=== PATIENT | male | born 1960 | race Caucasian/White ===

== ENCOUNTER 2019-03-31 01:17 | Observation (INO) ==
[2019-03-31] MEDS ORDERED: Aspirin 81 MG TAB.CHEW PO STA (01:47)
[2019-03-31 01:52] LABS: Basophils # 0.1 K/mcL (0.0-0.2); Basophils % 0.9 %; Eosinophils # 0.3 K/mcL (0.0-0.6); Eosinophils % 5.2 %; Hematocrit 43.3 % (37.5-50.1); Hemoglobin 15.2 g/dL (12.9-16.9); Immature Granulocytes % 0.2 % (0-4); Lymphocytes # 1.9 K/mcL (0.6-4.6); Lymphocytes % 34.3 %; Mean Corpuscular HGB Conc 35.1 g/dL (31.6-35.5); Mean Corpuscular Hemoglobin 30.7 pg (28.0-33.3); Mean Corpuscular Volume 87.5 fL (83.0-100.0); Mean Platelet Volume 10.1 fL (9.4-12.4); Monocytes # 0.7 K/mcL (0.0-1.3); Neutrophils # 2.6 K/mcL (1.6-8.9); Platelet Count 178 K/mcL (140-400); Red Blood Count 4.95 M/mcL (4.19-5.50); Red Cell Distribution Width 11.9 % (11.5-14.5); Segmented Neutrophils % 47.4 %; White Blood Count 5.4 K/mcL (4.3-11.1)
[2019-03-31 02:13] LABS: BUN/Creatinine Ratio 19 (6-26); Blood Urea Nitrogen 17 mg/dL (6-20); Calcium 9.5 mg/dL (8.6-10.3); Carbon Dioxide 22 mEq/L (23-29); Chloride 105 mEq/L (98-107); Glucose 88 mg/dL (70-105); Osmolality,Calculated 287 (280-300); Potassium 3.8 mEq/L (3.5-5.1); Sodium 138 mEq/L (136-145); eGFR For African Americans > 60 (> 60); eGFR For Non-African Americans > 60 (> 60)
[2019-03-31 02:14] LABS: Troponin I < 0.03 ng/mL (< 0.04)
--- NOTE | 2019-03-31 02:49 | Emergency Department Note ---
Disposition Clinical Impression: Chest pain Qualifiers: Chest pain type: unspecified Qualified Code(s): R07.9 - Chest pain, unspecified Disposition: Admitted As Inpatient Condition: Good Time of Disposition: 03:18 Chest Pain HPI - General Chief Complaint: ED Chest Pain Stated Complaint: CP Time Seen by Provider: 03/31/19 01:29 Source: patient Limitations: no limitations - History of Present Illness HPI Narrative: Patient 58-year-old gentleman presents to the emergency department with chief complaint of chest pain. The patient states around 6:00 tonight he started having midsternal chest pain. Patient states he also noticed that he started having a sensation like he would skip a beat. 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 Patient states that he did not get diaphoretic or have radiation of the symptoms. Patient states that he did have similar symptoms in the past whenever he had gastritis from taking alieve. Severity scale (1-10): 4 - Related Data Home Medications Medication Instructions Recorded Confirmed No Known Home Drugs 03/31/19 03/31/19 Allergies Allergy/AdvReac Type Severity Reaction Status Date / Time naproxen [From Aleve] Allergy Anaphylaxis Verified 03/31/19 01:46 All systems ED: reviewed and negative except as stated. Chest Pain PMH - Past Medical History Medical history: Reports: no medical history Surgical history: Reports: herniorrhaphy - Social History Smoking Status: Never smoker Alcohol use: Reports: occasionally Physical Exam General: Conversant and pleasant interactive and nontoxic. Head: Normocephalic/atraumatic Eyes:PERRLA, EOMI, no conjunctivitis Nares: Without d/c. Ears: No erythema or d/c noted. Oralpharnyx: P&MMM noted, Neck: Supple, no JVD or VP COMPLIANCE noted. Cardovascular: regular rate and rhythm without murmur, brisk capillary refill, no peripheral edema. Lungs: Clear to ascultation bilaterally, non-labored Abd: Soft nontender, Non Distended, no guarding, no rebound. : Defered Extremities: moves all extremities equally Neuro: AOx3, no obvious gross neuro deficit Psych: Normal Affect Derm: No rash noted - General Limitations: no limitations General appearance: alert, in no apparent distress Course Vital Signs Temperature 97.6 F 03/31/19 01:23 Pulse Rate 62 03/31/19 01:23 Respiratory Rate 16 03/31/19 01:23 Blood Pressure 165/88 03/31/19 01:23 O2 Sat by Pulse Oximetry 99 03/31/19 01:23 Temperature 97.6 F 03/31/19 06:33 Pulse Rate 51 03/31/19 06:33 Respiratory Rate 16 03/31/19 06:33 Blood Pressure 123/74 03/31/19 06:33 O2 Sat by Pulse Oximetry 98 03/31/19 06:33 Oxygen Delivery Oxygen Delivery Room Air Chest Pain - Lab Data Result diagrams: 03/31/19 01:41 03/31/19 01:41 Lab Results 03/31/19 03/31/19 Range/Units 01:41 01:41 WBC 5.4 (4.3-11.1) K/mcL RBC 4.95 (4.19-5.50) M/mcL Hgb 15.2 (12.9-16.9) g/dL Hct 43.3 (37.5-50.1) % MCV 87.5 (83.0-100.0) fL MCH 30.7 (28.0-33.3) pg MCHC 35.1 (31.6-35.5) g/dL RDW 11.9 (11.5-14.5) % Plt Count 178 (140-400) K/mcL MPV 10.1 (9.4-12.4) fL Immature Gran % 0.2 (0-4) % Seg Neutrophils % 47.4 % Lymphocytes % 34.3 % Monocytes % 12.0 % Eosinophils % 5.2 % Basophils % 0.9 % Neutrophils # 2.6 (1.6-8.9) K/mcL Lymphocytes # 1.9 (0.6-4.6) K/mcL Monocytes # 0.7 (0.0-1.3) K/mcL Eosinophils # 0.3 (0.0-0.6) K/mcL Basophils # 0.1 (0.0-0.2) K/mcL Sodium 138 (136-145) mEq/L Potassium 3.8 (3.5-5.1) mEq/L Chloride 105 (98-107) mEq/L Carbon Dioxide 22 L (23-29) mEq/L BUN 17 (6-20) mg/dL Creatinine 0.88 (0.70-1.30) mg/dL Est GFR ( Amer) > 60 (> 60) Est GFR (Non-Af Amer) > 60 (> 60) BUN/Creatinine Ratio 19 (6-26) Glucose 88 (70-105) mg/dL Calculated Osmolality 287 (280-300) Calcium 9.5 (8.6-10.3) mg/dL Troponin I < 0.03 (< 0.04) ng/mL Heart Score - Score History: Moderately Suspicious EKG: Normal Age: 45-65 Risk Factors: No risk factors known Troponin: Less than normal limit HEART Score Total: 2
[2019-03-31] MEDS ORDERED: Naloxone 0.4 MG/ML INJ IVP PRN (06:31)
--- NOTE | 2019-03-31 06:40 | Internal Med History&Physical ---
Date of Encounter: 03/31/19 Time of Encounter: 06:21 Internal Medicine - H&P: HPI Chief complaint: Chest pain Admitted From: Emergency Dept Plans for Post Hospital Care: Home History of present illness: Mr. Ramirez is a 58 year old male Patient presented to the emergency department for experiencing chest pain while he was out working in his yard. He has a significant history of recent physical exam by his PCP that revealed on EKG that he had PVCs. 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 He says that up until yesterday when he had his chest pain he never had chest pain previously. He receives EKG is every 6 months, and he has never had an abnormality on his EKGs before. His chest pain was in the center of his lower chest, and did not radiate. After the chest pain presented, he went inside to relax but the chest pain did not improve. He did not have any medicines at home other than Aleve to take. The Aleve did not alleviate his pain. He came to the emergency department for further evaluation. Emergency room vital signs within normal limits CBC unremarkable BMP unremarkable Troponin undetectable Chest x-ray showed no acute cardiopulmonary abnormality EKG: Sinus rhythm with frequent ventricular premature complexes. Rate 71, QTC 422 ms. In the emergency department patient received a 324 mg dose of aspirin. He was admitted to the hospital for further management. Upon my evaluation, patient is resting comfortably in the hospital bed in no acute distress. He states that he still has some vague chest pain is much improved from previous. He denies abdominal pain, nausea, vomiting, diarrhea and constipation. He has undergone cardiac workup before, more than 2 years ago and the workup was negative. However at that time he was not having PVCs. He is a full code. Past Med Surg Social Fam HX - Past Medical History Medical history: no medical history Psychiatric history: no psych history - Past Surgical History Surgical History: herniorrhaphy - Social History Smoking Status: Never smoker Smokeless Tobacco Status: No Alcohol use: occasionally Drug use: none - Family History Mother Living Status: Still Living Hx Family Cardiac Disorders: Yes (CHF) Internal Medicine - H&P: Meds No Known Home Drugs 03/31/19 [History] Allergy/AdvReac Type Severity Reaction Status Date / Time naproxen [From Aleve] Allergy Anaphylaxis Verified 03/31/19 01:46 All Systems PM: A 10-system review of systems was performed and is negative for pertinent findings except as documented above in the HPI. - Constitutional Vitals: Temp Pulse Resp BP Pulse Ox 97.6 F 51 16 123/74 98 03/31/19 06:33 03/31/19 06:33 03/31/19 06:33 03/31/19 06:33 03/31/19 06:33 General appearance: Present: cooperative, A&O X 3, pleasant, no acute distress, answers questions appropriately Exam: - - Head Head exam: Present: normal inspection - Eye Eye exam: Present: EOMI, normal appearance - Respiratory Respiratory exam: Present: CTAB. Absent: rales, respiratory distress, rhonchi, wheezes - Cardiovascular Cardiovascular exam: Present: RRR. Absent: diastolic murmur, systolic murmur - GI/Abdominal GI/Abdominal exam: Present: normal bowel sounds, soft. Absent: tenderness - Extremities Exam Extremities exam: Present: warm, radial pulses palpable and symmetrical. Absent: calf tenderness, pedal edema, tenderness - Neurological Exam Neurological exam: Present: no focal deficits, strengths equal and symetr throughout. Absent: motor sensory deficit, facial droop, speech deficit - Skin Skin exam: Present: dry, normal color, warm Internal Med - H&P Results - Labs CBC & Chem 7: 03/31/19 01:41 03/31/19 01:41 Labs: Short CBC 03/31/19 Range/Units 01:41 WBC 5.4 (4.3-11.1) K/mcL Hgb 15.2 (12.9-16.9) g/dL Hct 43.3 (37.5-50.1) % Plt Count 178 (140-400) K/mcL Neutrophils # 2.6 (1.6-8.9) K/mcL BMP 03/31/19 01:41 Sodium 138 Potassium 3.8 Chloride 105 Carbon Dioxide 22 L BUN 17 Creatinine 0.88 Glucose 88 Calcium 9.5 Cardiac Enzymes 03/31/19 Range/Units 01:41 Troponin I < 0.03 (< 0.04) ng/mL - Impressions ITS Impressions Chest X-Ray 03/31/19 02:13 IMPRESSION: No acute cardiopulmonary abnormality. D/ / Jules Davis MD / Jules Davis MD Interpreting Provider: Jules Davis MD - Assessment and Plan (1) Chest pain Current Visit: Yes Status: Acute Assessment and plan: Patient presented with center chest pain without radiation. She never had symptoms like that before. EKG revealed frequent PVCs. Initial troponin undetectable. Chest pain has improved since its initial presentation. Echocardiogram in the morning Stress test in the morning Continue to trend troponin Cardiac telemetry Qualifiers: Chest pain type: unspecified Qualified Code(s): R07.9 - Chest pain, unspecified (2) DVT prophylaxis Current Visit: Yes Status: Acute Assessment and plan: Subcutaneous heparin - Time Spent With Patient Total time spent is greater than 50% in coordination of care (as documented) at patient's floor/unit and/or counseling patient:
[2019-03-31] MEDS ORDERED: Aspirin Enteric Coated 81 MG Tablet PO SCH (09:00)
[2019-03-31 10:37] LABS: Hematocrit 43.3 % (37.5-50.1); Mean Corpuscular HGB Conc 34.6 g/dL (31.6-35.5); Mean Corpuscular Hemoglobin 30.4 pg (28.0-33.3); Mean Corpuscular Volume 87.8 fL (83.0-100.0); Mean Platelet Volume 10.5 fL (9.4-12.4); Platelet Count 179 K/mcL (140-400); Red Blood Count 4.93 M/mcL (4.19-5.50); White Blood Count 5.1 K/mcL (4.3-11.1)
[2019-03-31 11:01] LABS: BUN/Creatinine Ratio 19 (6-26); Blood Urea Nitrogen 15 mg/dL (6-20); Calcium 9.4 mg/dL (8.6-10.3); Carbon Dioxide 27 mEq/L (23-29); Chloride 106 mEq/L (98-107); Glucose 88 mg/dL (70-105); Osmolality,Calculated 288 (280-300); Sodium 139 mEq/L (136-145); Troponin I < 0.03 ng/mL (< 0.04); eGFR For African Americans > 60 (> 60); eGFR For Non-African Americans > 60 (> 60)
[2019-03-31] MEDS ORDERED: Pantoprazole 40 MG VIAL IVP SCH (11:43)
--- NOTE | 2019-03-31 11:51 | Discharge Summary ---
Date of Encounter: 03/31/19 Time of Encounter: 11:44 - Discharge Diagnosis (1) Chest pain Priority: Primary Status: Acute Qualifiers: Chest pain type: unspecified Qualified Code(s): R07.9 - Chest pain, unspecified (2) DVT prophylaxis Priority: Secondary Status: Acute (3) GERD (gastroesophageal reflux disease) Priority: Secondary Status: Chronic Qualifiers: Esophagitis presence: esophagitis presence not specified Qualified Code(s): K21.9 - Gastro-esophageal reflux disease without esophagitis (4) PVCs (premature ventricular contractions) Priority: Primary Status: Acute Hospital course: Mr. Ramirez is a 58 year old male no significant PMH patient presented to the ED due to chest pain while he was out working in his yard. He has a significant history of recent physical exam by his PCP that revealed on EKG that he had PVCs. 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 Patient reported to me having similar chest pain/discomfort in the past and had a stress test which was negative, during that occasion he was started on some PPIs with resolution of his symptoms, but reported he stopped taking the PPIs as he has lost weight. During my evaluation he reported the pain being in the epigastric area, denied chest pain, nausea or vomiting. Patient underwent a stress test: negative for ischemia TTE: Impressions: LVEF 55-60%. Normal LV chamber size, wall thickness and function. Normal left ventricular diastolic function. Normal right ventricular structure and function. Unable to estimate RVSP due to lack of TR jet. No significant valvular dysfunction. serial trops negative. Recommended to make an appointment with a fly maker as outpatient. Unable to start low dose of bb due to bradycardia. - Time Spent with Patient Total time spent providing and/or coordinating discharge services: Time spent: D/C greater than 8 hours after Admission - Discharge Medications Prescriptions: New Omeprazole [PriLOSEC] 40 mg PO DAILY 30 Days #30 cap Home Medications: Omeprazole [PriLOSEC] 40 mg PO DAILY 30 Days #30 cap 03/31/19 [Rx] Allergies/Adverse Reactions: Allergy/AdvReac Type Severity Reaction Status Date / Time naproxen [From Aleve] Allergy Gastrointestinal Verified 03/31/19 09:16 Upset Date of admission: 03/31/19 03:57 Primary care physician: Emily Wesley MD - Constitutional Vitals: Temp Pulse Resp BP Pulse Ox 97.7 F 59 17 115/71 97 03/31/19 11:04 03/31/19 11:04 03/31/19 11:04 03/31/19 11:04 03/31/19 11:04 General appearance: Present: cooperative, A&O X 3, pleasant, no acute distress, answers questions appropriately Exam: Vitals: Reviewed. General: Alert and oriented x4. In no distress Cardiovascular: RRR, normal S1 & S2, no rubs, murmurs or gallops. Lungs: CTA b/l, no wheezes or crackles. Abdomen: Soft, non-tender, no rigidity. Extremities: No deformity, no edema or tenderness, no joint swelling or clubbing. Neurological: Normal cognition and motor skills. Rest of the physical exam is non contributory - Patient Status Disposition: Home, Self-Care Condition: Good Functional capacity at discharge: independent ambulation Overall status at discharge: patient is back to baseline - Discharge Instructions Follow Up With: Emily Wesley MD [Primary Care Provider] - - Diet and Activity Activity: resume usual activities as tolerated Diet: advance to your usual diet
[2019-03-31 14:41] VITALS: BP 128/85
[2019-03-31] MEDS ORDERED: *HR* Heparin 5,000 UNIT/ML VIAL SQ SCH (18:00)
--- NOTE | 2019-03-31 18:41 | Electrocardiograph Report ---
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
--- NOTE | 2019-04-01 10:19 | Electrocardiograph Report ---
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
== END 2019-03-31 16:40 | disposition home or self-care (01) ==
LOC: EMEROOARM 01:17 → 2ANU 01:17
PROVIDERS: ADMIT Internal Medicine; ATTEND Internal Medicine